=== PATIENT | female | born 1995 ===

== ENCOUNTER 2017-01-26 18:21 | Emergency (ER) | payer OTHER ==
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
--- NOTE | 2017-01-27 08:50 | ED MAR SUMMARY ---
..... Medication Administration Record [facility] [address] [place] [address] Patient: ARELI MCCRACKEN Visit ID: [id number] 21y, F Weight: 81.6 kg Height/Length: 62 in BMI: 32.9 ALLERGIES: None Given 18:01/26/2017 Yessica Kendall, R.N. Medication Administered: DIAZEPAM [PO] (DIAZEPAM), Dose: 10 mg Tablets PO. Medication Ordered: Diazepam PO 10 mg (HIGH ALERT MEDICATION, NOW). Given 18:55 01/26/2017 Yessica Kendall, R.N. Medication Administered: MOTRIN [PO], Dose: 800 mg Tablets PO. Medication Ordered: Motrin PO 800 mg (NOW).
--- NOTE | 2017-01-27 08:50 | ED MED RECONCILIATION SUMMARY ---
Patient: ARELI MCCRACKEN Medication Reconciliation Report [facility] VisitID: [id number] [address] [place] [address] 21y, F Registration Date/Time: 01/26/2017 Weight: 81.6 kg Height/Length: 62 in. BMI: 32.9 ALLERGIES: None The patient's Home Medications are listed below: NONE. The source(s) of the original Home Medication information: Not obtained. The following Medications were given to the patient in the Emergency Department: Diazepam [PO] PO 10 mg, administered: 01/26/2017 6:55:00 PM Motrin [PO] PO 800 mg, administered: 01/26/2017 6:55:00 PM The following Medications were prescribed to the patient: Baclofen 10 mg: take 1 orally every 8 hours. Dispense twenty (20). No refills. -- Arnel Rachel Dr. Diclofenac 50 mg tablets: take 1 tablet orally every 8 hours as needed for pain or stiffness. Dispense thirty (30). No refill. -- Arnel Rachel Dr.
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
--- NOTE | 2017-01-27 08:50 | ED MED RECONCILIATION SUMMARY ---
Patient: ARELI MCCRACKEN Medication Reconciliation Report [facility] VisitID: [id number] [place] [address] 21y, F Registration Date/Time: 01/26/2017 Weight: 81.6 kg Height/Length: 62 in. BMI: 32.9 ALLERGIES: None The patient's Home Medications are listed below: NONE. The source(s) of the original Home Medication information: Not obtained. The following Medications were given to the patient in the Emergency Department: Diazepam [PO] PO 10 mg, administered: 01/26/2017 6:55:00 PM Motrin [PO] PO 800 mg, administered: 01/26/2017 6:55:00 PM The following Medications were prescribed to the patient: Baclofen 10 mg: take 1 orally every 8 hours. Dispense twenty (20). No refills. -- Arnel Rachel Dr. Diclofenac 50 mg tablets: take 1 tablet orally every 8 hours as needed for pain or stiffness. Dispense thirty (30). No refill. -- Arnel Rachel Dr.
--- NOTE | 2017-01-27 08:50 | ED MAR SUMMARY ---
..... Medication Administration Record [facility] [address] [place] [address] Patient: ARELI MCCRACKEN Visit ID: [id number] 21y, F Weight: 81.6 kg Height/Length: 62 in BMI: 32.9 ALLERGIES: None Given 18:01/26/2017 Yessica Kendall, R.N. Medication Administered: DIAZEPAM [PO] (DIAZEPAM), Dose: 10 mg Tablets PO. Medication Ordered: Diazepam PO 10 mg (HIGH ALERT MEDICATION, NOW). Given 18:55 01/26/2017 Yessica Kendall, R.N. Medication Administered: MOTRIN [PO], Dose: 800 mg Tablets PO. Medication Ordered: Motrin PO 800 mg (NOW).
== END 2017-01-26 20:00 | disposition home or self-care (01) ==
LOC: ED SRH 18:21
DX: S39.012A Strain of muscle, fascia and tendon of lower back, initial encounter (principal); S20.219A Contusion of unspecified front wall of thorax, initial encounter; V43.52XA Car driver injured in collision with other type car in traffic accident, initial encounter; Y93.9 Activity, unspecified; Y99.9 Unspecified external cause status; Y92.9 Unspecified place or not applicable